=== PATIENT | female | born 1960 | race Caucasian/White ===

== ENCOUNTER 2016-10-06 10:11 | Emergency (ER) | payer OTHER ==
[~2016-10-06] VITALS: Ht 162.6 cm; Wt 98.5 kg
[2016-10-06 10:14] VITALS: BP 178/75; PULSE 62; RESP 20; TEMP 97.5; O2SAT 95
[2016-10-06] MEDS ORDERED: CLINDAMYCIN INJ 600 MG in SODIUM CHLORIDE 0.9% INJ 100 ML IV ONE (11:30)
[2016-10-06] MEDS ORDERED: KETOROLAC TROMETHAMINE 30 MG/ML (IVP) VIAL IV PUSH ONE (11:30)
--- NOTE | 2016-10-06 11:44 | PD ---
HPI Chief Complaint: Edema Time Seen by Provider: 11:37 Travel History International Travel<30 days: No Contact w/Intl Traveler<30days: No Traveled to known affect area: No History of Present Illness HPI 55-year-old female that presents to the ED for evaluation of right foot pain with swelling and erythema since yesterday. Patient has a history of diabetes and psoriasis. Patient denies any injury to the foot. Per patient the swelling has been painful and the pain is 9 out of 10. Per patient the pain is achy. Most of the pain and swelling to the distal part of the foot. She denies any history of gout or any trauma. No fevers chills or sweats. Per patient the pain is more severe when she bears weight. Patient took some over- the-counter pain relievers with some relief of the pain. She has never had anything like this before. No surgeries to the foot. No discoloration other than erythema. Patient denies any other complaints. No pain anywhere else. PFSH Past Medical History Hx Anticoagulant Therapy: Yes (ASA 81MG ) Cardiovascular Problems: Yes (4 VESSEL BYPASS) Cerebrovascular Accident: Yes Diabetes: Yes Patient Takes Glucophage: No Kidney Stones: Yes Past Surgical History Coronary Artery Bypass Graft: Yes (x4) Hysterectomy: Yes Tonsillectomy: Yes Social History Alcohol Use: No Tobacco Use: No Substance Use: No Allergies-Medications (Allergen,Severity, Reaction): Coded Allergies: Percocet (Verified Allergy, Severe, 10/06/16) hives Sulfa (Verified Allergy, Severe, 10/06/16) allergic Reported Meds & Prescriptions Reported Meds & Active Scripts Active Diclofenac Sodium DR (Diclofenac Sodium) 75 Mg Tabdr 75 Mg PO BID PRN Clindamycin (Clindamycin HCl) 150 Mg Cap 300 Mg PO Q6H 10 Days Review of Systems General / Constitutional: No: Fever, Chills, Weight Gain, Weight Loss, Other Eyes: No: Diploplia, Blurred Vision, Photophobia, Drainage, Redness, Foreign Body Sensation, Pain, Tearing, Blind Spots, Visual changes, Blindness, Other HENT: No: Headaches, Vertigo, Lightheadedness, Sore Throat, Rhinitis, Rhinorrhea, Congestion, Nosebleed, Neck Stiffness, Neck Pain, Masses, Gingival Bleeding, Dental Difficulties, Ear Discharge, Earache, Other Cardiovascular: No: Chest Pain or Discomfort, Palpitations, Irregular Rhythm, Tachycardia, Diaphoresis, Syncope, Dyspnea on exertion, Varicosities, Edema, Cyanosis, Varicosities, Phlebitis, Claudication, Other Respiratory: No: Cough, Shortness of Breath, Wheezing, Sneezing, Orthopnea, Hemoptysis, Stridor, Night Sweats, Pleuritic Pain, Other Gastrointestinal: No: Nausea, Vomiting, Diarrhea, Abdominal Pain, Hematemesis, Hematochezia, Constipation, Changes in Bowel Habits, Indigestion, Dysphagia, Loss of Appetite, Other Genitourinary: No: Urgency, Frequency, Dysuria, Nocturia, Hematuria, Decreased Urinary Output, Oliguria, Hesitancy, Dribbling, Incontinence, Pelvic Pain, Flank Pain, Dyspareunia, Discharge, Dysmenorrhea, Menorrhagia, Metorrhagia, Vaginal Bleeding, Other Musculoskeletal: Positive: Edema, Pain, No: Myalgias, Arthralgias, Limited ROM , Weakness, Cramping, Atrophy, Other Skin: Positive Rash, No Itching, No Dryness, No Lumps, No Hives, No Change in Pigmentation, No Change in nails, No Alopecia, No Lesions, No Breast Lumps, No Breast Tenderness, No Breast Swelling, No Other Neurologic: No: Weakness, Dizziness, Syncope, Focal Abnormalities, Coordination Problem, Tremor, Ataxia, Headache, Change in Mentation, Slurred Speech, Paresthesia, Incontinence, Seizures, Sensory Disturbance, Other Psychiatric: No: Anxiety, Depression, Suicidal Ideations, Disorder of Thought, Mood Disorder, Substance Abuse, Homicidal Ideation, Other Endocrine: No: Heat Intolerance, Cold Intolerance, Polyuria, Polydipsia, Other Hematologic/Lymphatic: No: Easy Bruising, Lymph Node Enlargement, Other Physical Exam Narrative GENERAL: SKIN: Warm and dry. HEAD: Atraumatic. Normocephalic. EYES: Pupils equal and round. No scleral icterus. No injection or drainage. ENT: No nasal bleeding or discharge. Mucous membranes pink and moist. Tongue is midline. No uvula deviation. NECK: Trachea midline. No JVD. CARDIOVASCULAR: Regular rate and rhythm. No murmurs, S3, S4. RESPIRATORY: No accessory muscle use. Clear to auscultation. Breath sounds equal bilaterally. GASTROINTESTINAL: Abdomen soft, non-tender, nondistended. Hepatic and splenic margins not palpable. MUSCULOSKELETAL: Extremities without clubbing, cyanosis, or edema. No obvious deformities. Patient has an area of erythema around the distal aspect of the right foot. Mainly around the second toe. No obvious foreign body noted. Pain reproducible with touch in the plantar as well as the dorsal aspect of the foot. 2+ pulses bilaterally. Full range of motion of the toes. Tender to touch. Warm to touch. Good capillary refill of the toes. NEUROLOGICAL: Awake and alert. No obvious cranial nerve deficits. Motor grossly within normal limits. Five out of 5 muscle strength in the arms and legs. Normal speech. PSYCHIATRIC: Appropriate mood and affect; insight and judgment normal. Data Data Last Documented VS Vital Signs Date Time Temp Pulse Resp B/P Pulse Ox O2 Delivery O2 Flow Rate FiO2 10/06/16 10:14 97.5 62 20 178/75 95 Room Air Orders Foot, Complete ([id number]) (10/06/16 11:21) Ice/Cold Pack (10/06/16 11:21) Complete Blood Count With Diff (10/06/16 11:21) Westergren Sedimentation Rate (10/06/16 11:21) Iv Access Insert/Monitor (10/06/16 11:21) Clindamycin Inj (Cleocin Inj) (10/06/16 11:30) Ketorolac Inj (Toradol Inj) (10/06/16 11:30) Labs Laboratory Tests Test 10/06/16 11:48 White Blood Count 8.7 TH/MM3 Red Blood Count 4.00 MIL/MM3 Hemoglobin 12.0 GM/DL Hematocrit 35.2 % Mean Corpuscular Volume 87.9 FL Mean Corpuscular Hemoglobin 30.0 PG Mean Corpuscular Hemoglobin 34.1 % Concent Red Cell Distribution Width 14.6 % Platelet Count 223 TH/MM3 Mean Platelet Volume 8.4 FL Neutrophils (%) (Auto) 60.2 % Lymphocytes (%) (Auto) 33.7 % Monocytes (%) (Auto) 3.5 % Eosinophils (%) (Auto) 2.0 % Basophils (%) (Auto) 0.6 % Neutrophils # (Auto) 5.3 TH/MM3 Lymphocytes # (Auto) 2.9 TH/MM3 Monocytes # (Auto) 0.3 TH/MM3 Eosinophils # (Auto) 0.2 TH/MM3 Basophils # (Auto) 0.0 TH/MM3 CBC Comment DIFF FINAL Differential Comment [facility] Medical Decision Making Medical Screen Exam Complete: Yes Emergency Medical Condition: Yes Medical Record Reviewed: Yes Interpretation(s) xray showed no acute injury CBC Diagram 10/06/16 11:48 Differential Diagnosis cellulitis vs arthritis vs osteomyelitis vs foreign body Narrative Course 55-year-old female that presents to the ED for evaluation of swelling and erythema to the right foot. Patient was properly examined and was found to have signs and symptoms consistent appears to be possible early cellulitis. Patient does have a history of diabetes. No history of gout or arthritis. At this time I recommend labs and imaging as well as IV antibiotics. Patient is agreeable with this. Labs and imaging showed no sign of acute disease. Patient was reassured. From history and physical this appears to be early cellulitis. Patient will be treated with oral clindamycin as well as the Copaxone for pain. I recommend ice or warm compresses. Elevation. Recheck in 40 was if not better. See ED worsening symptoms. This was discussed in my attending Dr. Moya who evaluated the patient with me and agrees with plan. Diagnosis Primary Impression: Cellulitis Qualified Code: L03.113 - Cellulitis of right upper extremity Patient Instructions: General Instructions Additional Instructions: Take medications as prescribed. Apply ice or warm compresses to the area. Monitor for worsening symptoms. In 48 hours should improve, if not come back to ED to reevaluate. If better f/u with PCP. If worsening see ED. Med/Other Pt SpecificInfo: Prescription(s) given, Wound Care Scripts Diclofenac Sodium DR 75 Mg Tabdr75 Mg PO BID PRN (PAIN SCALE 1 TO 10) #20 TAB Prov:Kalina Velasco MD 10/06/16 Clindamycin 150 Mg [id number] Mg PO Q6H 10 Days Prov:Kalina Velasco MD 10/06/16 Disposition: 01 DISCHARGE HOME Condition: Stable Shaka Neal Oct 06, 2016 11:44
--- NOTE | 2016-10-06 11:47 | RADRPT ---
EXAM DATE/TIME: 10/06/2016 11:49 [facility] COMPARISON: No previous studies available for comparison. INDICATIONS : Patient states she woke up and foot was red and swollen between her second and third digit on right f oot. MEDICAL HISTORY : Hypertension. Chronic obstructive pulmonary disease. Diabetes mellitus type II. SURGICAL HISTORY : CABG. ENCOUNTER: Initial ACUITY: 1 day PAIN SCORE: 8/10 LOCATION: Right Between 2nd and 3rd digit on right foot. FINDINGS: Three view examination of the right foot demonstrates soft tissue swelling without dislocation, or fr acture. The tarsal bones appear intact. The interphalangeal and metatarsophalangeal joints are int act. The calcaneus is intact. Bony mineralization is normal. Small plantar calcaneal spur. CONCLUSION: 1. Soft tissue swelling without fracture. Mario Alvarado MD on October 06, 2016 at 11:45 Board Certified Radiologist. This report was verified electronically.
[2016-10-06] MEDS ORDERED: CLIN1CAP5 PO (11:54)
[2016-10-06] MEDS ORDERED: DICL75TA PO (11:54)
[2016-10-06 12:09] LABS: AUTOMATED NEUTROPHIL # 5.3 TH/MM3 (1.8-7.7); BASOPHIL % 0.6 % (0.0-2.0); EOSINOPHIL # 0.2 TH/MM3 (0-0.4); HEMATOCRIT 35.2 % (35.0-46.0); HEMO FLAGS DIFF FINAL; LYMPH % 33.7 % (9.0-44.0); LYMPHOCYTE # 2.9 TH/MM3 (1.0-4.8); MEAN CELL VOLUME 87.9 FL (80.0-100.0); MEAN CORPUSCULAR HGB CONC 34.1 % (32.0-36.0); MONO % 3.5 % (0.0-8.0); NEUT % 60.2 % (16.0-70.0); PLATELET COUNT 223 TH/MM3 (150-450); RED CELL DISTRIBUTION WIDTH 14.6 % (11.6-17.2); WHITE BLOOD COUNT 8.7 TH/MM3 (4.0-11.0)
[2016-10-06 12:30] VITALS: BP 160/86; PULSE 64; RESP 16; O2SAT 95
--- NOTE | 2016-10-06 12:46 | PD ---
Data Data Last Documented VS Vital Signs Date Time Temp Pulse Resp B/P Pulse Ox O2 Delivery O2 Flow Rate FiO2 10/06/16 10:14 97.5 62 20 178/75 95 Room Air Orders Foot, Complete ([id number]) (10/06/16 11:21) Ice/Cold Pack (10/06/16 11:21) Complete Blood Count With Diff (10/06/16 11:21) Westergren Sedimentation Rate (10/06/16 11:21) Iv Access Insert/Monitor (10/06/16 11:21) Clindamycin Inj (Cleocin Inj) (10/06/16 11:30) Ketorolac Inj (Toradol Inj) (10/06/16 11:30) Labs Laboratory Tests Test 10/06/16 11:48 White Blood Count 8.7 TH/MM3 Red Blood Count 4.00 MIL/MM3 Hemoglobin 12.0 GM/DL Hematocrit 35.2 % Mean Corpuscular Volume 87.9 FL Mean Corpuscular Hemoglobin 30.0 PG Mean Corpuscular Hemoglobin 34.1 % Concent Red Cell Distribution Width 14.6 % Platelet Count 223 TH/MM3 Mean Platelet Volume 8.4 FL Neutrophils (%) (Auto) 60.2 % Lymphocytes (%) (Auto) 33.7 % Monocytes (%) (Auto) 3.5 % Eosinophils (%) (Auto) 2.0 % Basophils (%) (Auto) 0.6 % Neutrophils # (Auto) 5.3 TH/MM3 Lymphocytes # (Auto) 2.9 TH/MM3 Monocytes # (Auto) 0.3 TH/MM3 Eosinophils # (Auto) 0.2 TH/MM3 Basophils # (Auto) 0.0 TH/MM3 CBC Comment DIFF FINAL Differential Comment Erythrocyte Sedimentation Rate 57 mm/hr MDM Supervised Visit with JOHN: Yes Narrative Course I, Dr. Velasco, have reviewed the advance practice practioner's documentation and am in agreement, met with the patient face to face, made the diagnosis, and the medical decision making was done by me. *My assessment and Findings: 55-year-old diabetic female here with right foot swelling, redness since yesterday without injury. Mild amount of pain. This does not extend into the ankle or lower leg. Exam patient has mild erythema of the dorsal aspect of the right foot. Distal sensation, pulses are intact. Exam is consistent with cellulitis, less likely gout. There are no open wounds or ulcers. My suspicion for osteomyelitis is exceedingly low. Antibiotics were administered, x-ray and labs unremarkable and patient will be discharged. Diagnosis Primary Impression: Cellulitis Qualified Code: L03.113 - Cellulitis of right upper extremity Patient Instructions: General Instructions, Cellulitis (ED) Departure Forms: Tests/Procedures Additional Instruction: Take medications as prescribed. Apply ice or warm compresses to the area. Monitor for worsening symptoms. In 48 hours should improve, if not come back to ED to reevaluate. If better f/u with PCP. If worsening see ED. Scripts Diclofenac Sodium DR 75 Mg Tabdr75 Mg PO BID PRN (PAIN SCALE 1 TO 10) #20 TAB Prov:Kalina Velasco MD 10/06/16 Clindamycin 150 Mg [id number] Mg PO Q6H 10 Days Prov:Kalina Velasco MD 10/06/16 Disposition: 01 DISCHARGE HOME Condition: Stable Kalina Velasco MD Oct 06, 2016 12:45
== END 2016-10-06 13:01 | disposition home or self-care (01) ==
LOC: NEPE 10:11
DX: L03.113 Cellulitis of right upper limb (principal); E11.9 Type 2 diabetes mellitus without complications; Z79.82 Long term (current) use of aspirin
CPT/HCPCS: 73630; 85025; 85652; 96365; 96375; 99283; J1885